=== PATIENT | male | born 2000 | race Caucasian/White ===

== ENCOUNTER 2021-03-22 21:12 | Emergency (ER) | payer BC ==
[2021-03-22] MEDS: Ondansetron 4 MG Tab.DIS PO ONE (21:48)
--- NOTE | 2021-03-22 22:27 | EDM.PDOC ---
ED HPI GENERAL MEDICAL PROBLEM - General Chief Complaint: Respiratory Problem Stated Complaint: Headache, Cough Time Seen by Provider: 03/22/21 22:13 Source of Information: Reports: Patient, Family History Limitations: Reports: No Limitations - History of Present Illness INITIAL COMMENTS - FREE TEXT/NARRATIVE: Pt. presents to ER with complaints of cough, congestion, fever, chills, and body aches for the past at least 7 days. He denies any ill contacts that he is aware of. He states that he became nauseated and sick to his stomach tonight after eating. He has had mild diarrhea. Denies any rashes. No sore throat. No loss or taste or smell. Denies any bloody stools. Denies any chest pain, shortness of breath, or abdominal pain. Onset Date: 03/14/21 Location: Reports: Chest, Abdomen, Generalized - Related Data Allergies Allergy/AdvReac Type Severity Reaction Status Date / Time No Known Allergies Allergy Verified 03/22/21 21:54 Home Meds: Home Meds . [No Known Home Meds] 03/22/21 [History] Past Medical History - Past Health History Medical/Surgical History: Denies Medical/Surgical History Social & Family History - Tobacco Use Tobacco Use Status *Q: Never Tobacco User Second Hand Smoke Exposure: No - Caffeine Use Caffeine Use: Reports: None - Recreational Drug Use Recreational Drug Use: No ED ROS GENERAL - Review of Systems Review Of Systems: See Below Constitutional: Reports: Fever, Chills, Fatigue, Decreased Appetite. Denies: Diaphoresis HEENT: Reports: Rhinitis, Sinus Problem. Denies: Throat Pain, Throat Swelling Respiratory: Reports: Cough Cardiovascular: Reports: No Symptoms Endocrine: Reports: No Symptoms GI/Abdominal: Reports: Diarrhea, Nausea, Vomiting. Denies: Hematemesis, Hematochezia, Melena : Reports: No Symptoms Musculoskeletal: Reports: No Symptoms Skin: Reports: No Symptoms Neurological: Reports: No Symptoms Psychiatric: Reports: No Symptoms Hematologic/Lymphatic: Reports: No Symptoms Immunologic: Reports: No Symptoms ED EXAM, GENERAL - Physical Exam Exam: See Below Exam Limited By: No Limitations General Appearance: Alert, WD/WN, No Apparent Distress Eye Exam: Bilateral Eye: EOMI Ears: Normal External Exam, Normal Canal, Hearing Grossly Normal, Normal TMs Ear Exam: Bilateral Ear: Auricle Normal, Canal Normal, TM normal Nose: Normal Inspection, Normal Mucosa, No Blood Throat/Mouth: Normal Inspection, Normal Lips, Normal Teeth, Normal Gums, Normal Oropharynx, Normal Voice, No Airway Compromise Head: Atraumatic, Normocephalic Neck: Normal Inspection, Non-Tender, Full Range of Motion Respiratory/Chest: No Respiratory Distress, Lungs Clear, Normal Breath Sounds, No Accessory Muscle Use, Chest Non-Tender Cardiovascular: Normal Peripheral Pulses, Regular Rate, Rhythm, No Edema, No JVD, No Murmur Peripheral Pulses: 4+: Radial (L) GI/Abdominal: Soft, Non-Tender, No Distention, No Mass (Male) Exam: Deferred Rectal (Males) Exam: Deferred Back Exam: Normal Inspection, Full Range of Motion Extremities: Normal Inspection, Normal Range of Motion, Non-Tender, No Pedal Edema, Normal Capillary Refill Neurological: Alert, Oriented, CN II-XII Intact, Normal Cognition, Normal Gait, Normal Reflexes, No Motor/Sensory Deficits Psychiatric: Normal Affect, Normal Mood Skin Exam: Warm, Dry, Intact, Normal Color, No Rash Lymphatic: No Adenopathy Course - Vital Signs Last Recorded V/S: Last Vital Signs Temp 36.9 C 03/22/21 22:03 Pulse 113 H 03/22/21 22:03 Resp 15 03/22/21 22:03 BP 150/91 H 03/22/21 22:03 Pulse Ox 98 03/22/21 22:03 - Orders/Labs/Meds Orders: Active Orders 24 hr Category Date Time Status Chest 1V Frontal [CR] Stat Exams 03/22/21 21:20 Taken CORONAVIRUS COVID-19 RALPH [MOLEC] Stat Lab 03/22/21 21:40 Received Isolation [COMM] Routine Oth 03/22/21 21:20 Active Labs: Laboratory Tests 03/22/21 Range/Units 21:40 SARS-CoV-2 Ag (Rapid) Negative (NEGATIVE) Meds: Medications Discontinued Medications Generic Name Dose Route Start Last Admin Trade Name Rickiq PRN Reason Stop Dose Admin Ondansetron HCl 4 mg 03/22/21 21:40 03/22/21 21:48 Ondansetron 4 Mg Tab.Dis PO 03/22/21 21:41 4 mg ONETIME ONE Administration - Radiology Interpretation Free Text/Narrative:: Early infiltrate L lower lung base. Departure - Departure Time of Disposition: 22:26 Disposition: Home, Self-Care 01 Clinical Impression: CAP (community acquired pneumonia) - Discharge Information Instructions: Ondansetron oral dissolving tablet, Doxycycline tablets or capsules, Community-Acquired Pneumonia, Adult, [id number], Probiotics Forms: ED Department Discharge Additional Instructions: doxycycline 100mg 1 tab twice daily for 10 days total Zofran ODT 8mg 1 tab every 8 hours as needed for nausea/vomiting Drink plenty of fluids. It is OK if you don't feel like eating for the next few days Tylenol and ibuprofen as needed for fever/discomfort Recheck in clinic in 10-14 days, sooner if not gradually improving Sepsis Event Note (ED) - Focused Exam Vital Signs: Vital Signs Temp Pulse Resp BP Pulse Ox 03/22/21 22:03 36.9 C 113 H 15 150/91 H 98 - Problem List Review Problem List Initiated/Reviewed/Updated: Yes - My Orders Last 24 Hours: My Active Orders 03/22/21 21:20 Chest 1V Frontal [CR] Stat Isolation [COMM] Routine 03/22/21 21:40 CORONAVIRUS COVID-19 R[facility]PH [MOLEC] Stat - Assessment/Plan Last 24 Hours: My Active Orders 03/22/21 21:20 Chest 1V Frontal [CR] Stat Isolation [COMM] Routine 03/22/21 21:40 CORONAVIRUS COVID-19 RALPH [MOLEC] Stat Plan: Pt. will be discharged. Influenza and covid 19 swabs were negative. Pt. started on doxycycline 100mg twice daily for 10 days. He was started on zofran ODT 8mg 1 every 8 hours as needed for nausea/vomiting. Advised to drink plenty of fluids. Return to ER if unable to hold down fluids, having troubles breathing, chest pain or call if he has questions. Advised recheck in clinic in 2 weeks.
== END 2021-03-22 22:30 | disposition home or self-care (01) ==
LOC: LL.ED 21:12
DX: J18.9 Pneumonia, unspecified organism (principal); Z20.822 Contact with and (suspected) exposure to COVID-19
CPT/HCPCS: 71045; 87426; 87804; 99284; 99284-25; A9270-GY